=== PATIENT | male | born 1945 | race Caucasian/White ===

== ENCOUNTER 2017-02-12 21:18 | Emergency (ER) | payer OTHER, BC ==
[~2017-02-12] VITALS: Ht 188 cm; Wt 84.8 kg
--- NOTE | ~2017-02-12 | EKG ---
[place] [address] [facility] [place] [address] ELECTROCARDIOGRAM REPORT Name: HOOD MAYERS WILTON [id number] Admission: 02/12/17 Attend Phys: Discharge: 02/13/17 Date of : 43 Report #: [id number] THIS REPORT FOR: //name// [facility] ED Test Date: 2017-02-12 Test Time: 21:41:36 Pat Name: HOOD MAYERS Department: Room: Gender: Consulting Analyst: Veronica MONTANO : 1945 Requested By: Rafaela Camejo Order Number: [id number] MD: Jass Sommers Measurements Intervals [place] Rate: 51 P: 36 FL: 197 QRS: 27 QRSD: 103 T: 33 QT: 476 QTc: 439 Interpretive Statements Sinus bradycardia Otherwise no significant abnormality Compared to ECG 08/09/2009 06:49:12 No significant change was found Electronically Signed On 02-13-2017 8:22:36 CDT by Jass Sommers [email or web address] <ELECTRONICALLY SIGNED> By: Jass Sommers MD, [facility] 02/13/17 0822 D: [id number] Jass Sommers MD, FACC /EPI
[~2017-02-12 21:18] MED LIST: AMINOCAPROIC ACID 500 MG PO; CIPROFLOXACIN500 M1 PO; CO Q-10150 MG PO; MULTIVITAMINS; OMEGA 3-6-9 CO1 EACH PO; PLAVIX 75 MG TA75 MG PO; RESVERATROL250 MG PO; VITAMIN D1000 UNI1 PO; WELCHOL 625 MG625 MG PO
[2017-02-12 21:31] LABS: URINE BILIRUBIN NEGATIVE (Negative); URINE BLOOD 2+ (Negative); URINE COLOR YELLOW; URINE GLUCOSE-RANDOM* NEGATIVE (Negative); URINE KETONES 1+ (Negative); URINE NITRITE NEGATIVE (Negative); URINE PROTEIN (DIPSTICK) 1+ (Negative); URINE SPECIFIC GRAVITY >= 1.030 (1.003-1.035); URINE UROBILINOGEN 0.2 E.U./dl (0.2-1.0)
[2017-02-12 21:37] LABS: BACTERIA 1-9 Few /HPF (None Seen); CASTS None Seen /LPF (None Seen); CRYSTALS None Seen /LPF (None Seen); SQUAMOUS None Seen /LPF (0-3); URINE RBC 3-10 Few /HPF (0-2); URINE WBC None Seen /HPF (0-5)
[2017-02-12 21:48] LABS: ABSOLUTE NEUTROPHILS 7.2 thou/uL (1.4-8.2); BASOPHILS 0.2 % (0.0-2.0); EOSINOPHILS 0.5 % (0.0-3.0); HEMATOCRIT 41.6 % (42.0-52.0); HEMOGLOBIN 14.7 gm/dL (14.0-18.0); MCH 33.4 pg (26.0-34.0); MCHC 35.4 g/dL (28.0-37.0); MCV 94.4 fL (80.0-100.0); MONOCYTES 4.8 % (1.0-8.0); PLATELET COUNT 131 thou/uL (150-400); POLYS 84.5 % (36.0-66.0); RDW 13.1 % (10.5-14.5); WBC 8.5 thou/uL (4.0-11.0)
[2017-02-12 21:50] LABS: MANUAL DIFF NO
[2017-02-12] MEDS ORDERED: CRESTOR10 MG PO (21:50)
[2017-02-12 21:58] LABS: CALCIUM 8.9 mg/dL (8.5-10.1); POTASSIUM 3.3 mmol/L (3.5-5.1)
[2017-02-12 22:02] LABS: ALBUMIN 3.9 g/dL (3.4-5.0); DIRECT BILIRUBIN 0.2 mg/dL (<0.1-0.3); TOTAL BILIRUBIN 1.1 mg/dL (<0.1-1.0); TOTAL PROTEIN 7.5 g/dL (6.4-8.2)
[2017-02-13] MEDS ORDERED: ZOFRAN ODT4 MG PO (00:11)
[2017-02-13] MEDS ORDERED: CITRATE OF MAG296 ML PO (00:11)
[2017-02-13 00:14] VITALS: BP 126/78
== END 2017-02-13 01:13 | disposition home or self-care (01) ==
LOC: ER 21:18
PROVIDERS: Emergency Medicine
DX: K59.00 Constipation, unspecified (principal); Z98.890 Other specified postprocedural states; Z88.1 Allergy status to other antibiotic agents

== ENCOUNTER 2017-02-16 19:42 | Emergency (ER) | payer OTHER, BC ==
[~2017-02-16] VITALS: Ht 188 cm; Wt 84.8 kg
[~2017-02-16 19:42] MED LIST changes: +CITRATE OF MAG296 ML PO; +CRESTOR10 MG PO; +ZOFRAN ODT4 MG PO
[2017-02-16 20:20] LABS: URINE BILIRUBIN NEGATIVE (Negative); URINE BLOOD 2+ (Negative); URINE COLOR YELLOW; URINE GLUCOSE-RANDOM* NEGATIVE (Negative); URINE KETONES NEGATIVE (Negative); URINE NITRITE NEGATIVE (Negative); URINE PROTEIN (DIPSTICK) NEGATIVE (Negative); URINE SPECIFIC GRAVITY 1.025 (1.003-1.035); URINE UROBILINOGEN 0.2 E.U./dl (0.2-1.0)
[2017-02-16 20:26] LABS: HEMATOCRIT 42.1 % (42.0-52.0); HEMOGLOBIN 14.5 gm/dL (14.0-18.0); MCH 32.8 pg (26.0-34.0); MCHC 34.4 g/dL (28.0-37.0); MCV 95.2 fL (80.0-100.0); RBC 4.42 mil/uL (4.50-6.00); RDW 13.5 % (10.5-14.5)
[2017-02-16 20:29] LABS: SQUAMOUS None Seen /LPF (0-3); URINE WBC 6-15 Few /HPF (0-5)
[2017-02-16 20:30] LABS: BACTERIA 1-9 Few /HPF (None Seen); CASTS None Seen /LPF (None Seen); CRYSTALS None Seen /LPF (None Seen)
[2017-02-16 20:34] LABS: CALCIUM 8.9 mg/dL (8.5-10.1); CREATININE 1.1 mg/dL (0.7-1.3)
[2017-02-16 20:48] LABS: ALBUMIN 3.9 g/dL (3.4-5.0); TOTAL BILIRUBIN 0.8 mg/dL (<0.1-1.0); TOTAL PROTEIN 7.6 g/dL (6.4-8.2)
[2017-02-16] MEDS ORDERED: CITRATE OF MAG296 ML PO (21:28)
[2017-02-16 21:31] VITALS: BP 171/83
== END 2017-02-16 21:29 | disposition home or self-care (01) ==
LOC: ER 19:42
PROVIDERS: Physician Assistant
DX: K59.00 Constipation, unspecified (principal); F10.99 Alcohol use, unspecified with unspecified alcohol-induced disorder; Z98.890 Other specified postprocedural states; Z88.1 Allergy status to other antibiotic agents; Z88.8 Allergy status to other drugs, medicaments and biological substances; Z87.891 Personal history of nicotine dependence

== ENCOUNTER → 2018-03-23 | Outpatient (CLI) | payer OTHER, BC ==
--- NOTE | ~2018-03-23 | CATHLAB ---
[facility] [place] [address] INVASIVE PROCEDURE REPORT Name: TALIBHOOD WILTON Room #: REG [facility]#: [id number] Admission: 03/23/18 Attend Phys: Srikanth Linda, Discharge: Date of : 43 Date of Service: 04/06/18 1309 Report #: [id number] THIS REPORT FOR: //name// CC: Srikanth uGy ORDERING PHYSICIAN: Dr. Srikanth Linda. DURATION: 48 hours. INDICATION: Atrial fibrillation. HEART RATE DATA: Average heart rate was 54 beats per minute, minimum heart rate was 31 beats per minute at 3:22 a.m. Maximum heart rate was 104 beats per minute. The longest R-R interval was 2.8 seconds, which occurred at 04:48 in the morning. The underlying rhythm is atrial fibrillation. There was no ventricular tachycardia. A diary was not returned. IMPRESSION: 1. Atrial fibrillation. 2. Average heart rate 54 beats per minute. 3. Longest cardiac pause 2.8 seconds. By: 1309 [id number] Ivan Haley MD, FACC /nt
== END ==
LOC: CV 07:37
DX: I48.1 Persistent atrial fibrillation (principal)

== ENCOUNTER → 2018-04-08 | Outpatient (CLI) | payer OTHER, BC | LOC: NUC 07:12 | DX: Z01.810 Encounter for preprocedural cardiovascular examination (principal); I48.91 Unspecified atrial fibrillation; E78.5 Hyperlipidemia, unspecified; I10 Essential (primary) hypertension; Z87.891 Personal history of nicotine dependence ==

== ENCOUNTER → 2019-01-04 | Outpatient (CLI) | payer OTHER, BC ==
[~2019-01-04] VITALS: Ht 182.9 cm; Wt 89.8 kg
[~2019-01-04] MED LIST changes: +ASPIR 8181 MG PO; +B12INJ IM; +CAFFEINE200 M1 PO; +COUMADIN 5 MG TA5 M1 PO; +COZAAR 25 MG TA25 M1 PO; +ELIQUIS5 MG PO; +EPA-DHA 720 SO1 EACH PO; +IRON325 PO; +MULTAQ400 MG PO; +NORVASC2.5 MG PO; +PERCOCET PO; +PROTONIX40 M1 PO
--- NOTE | ~2019-01-04 | P ---
[facility] [place] [address] PROCEDURE REPORT Name: TALIBHOOD NÚÑEZ [id number] Admission: 01/04/19 ������������������ Attend Phys: Rene Broderick MD Discharge: ������������������ Date of : 43 Report #: [id number] THIS REPORT FOR: //name// CC: Regulo Guy DATE OF SERVICE: 01/04/2019 PROCEDURE: Cardioversion. PREOPERATIVE DIAGNOSIS: Atrial fibrillation. POSTOPERATIVE DIAGNOSIS: Atrial fibrillation. DESCRIPTION OF PROCEDURE: The patient underwent informed consent. He was then prepped in the standard fashion. He was then sedated by the Anesthesiology service. I performed three attempts at cardioversion, all at 200 joules. The first cardioversion did not result in conversion to sinus rhythm. The second resulted in sinus rhythm for about 10 seconds and then, he went back into AFib. The third cardioversion did not convert him to sinus rhythm either. No further attempts were performed. There were no procedure related complications. CONCLUSIONS: Failed cardioversion x 3 despite dronedarone therapy. ��������������������������������������������� ���������������������������������������� By: ��������������������������������������������� 0840 1903 Rene Broderick MD /nt
[2019-01-04 07:40] VITALS: BP 125/72
[2019-01-04 07:41] LABS: HEMOGLOBIN 10.9 gm/dL (14.0-18.0); MCH 28.2 pg (26.0-34.0); MCHC 32.9 g/dL (28.0-37.0); MCV 85.7 fL (80.0-100.0); RBC 3.85 mil/uL (4.50-6.00); RDW 15.5 % (10.5-14.5); WBC 5.6 thou/uL (4.0-11.0)
[2019-01-04 07:50] LABS: CREATININE 1.3 mg/dL (0.7-1.3); POTASSIUM 3.9 mmol/L (3.5-5.1)
[2019-01-04 07:54] LABS: APTT 29.5 Seconds (24.5-32.8); INR 1.2; PROTIME 12.2 Seconds (9.3-11.4)
[2019-01-04 07:56] LABS: ALBUMIN 3.4 g/dL (3.4-5.0); TOTAL BILIRUBIN 0.4 mg/dL (<0.1-1.0)
== END | disposition home or self-care (01) ==
LOC: CATH 06:58
PROVIDERS: Internal Medicine Cardiovascular Disease
DX: I48.91 Unspecified atrial fibrillation (principal); I10 Essential (primary) hypertension; E78.5 Hyperlipidemia, unspecified; Z87.891 Personal history of nicotine dependence; Z79.01 Long term (current) use of anticoagulants; Z90.49 Acquired absence of other specified parts of digestive tract; Z87.19 Personal history of other diseases of the digestive system; Z98.0 Intestinal bypass and anastomosis status; Z85.46 Personal history of malignant neoplasm of prostate; Z88.8 Allergy status to other drugs, medicaments and biological substances; Z79.899 Other long term (current) drug therapy; Z98.890 Other specified postprocedural states
CPT/HCPCS: 62110; 62900